=== PATIENT | male | born 1940 | race Hispanic/Latino ===

== ENCOUNTER 2017-07-25 08:20 | Inpatient (IN) | payer MEDICARE, MEDICAID ==
[2017-07-25 08:20] VITALS: BMI 28.8
[2017-07-25 09:18] LABS: BASO % 0.2 % (0.0-2.0); EOS % 0.2 % (0.0-4.0); LYMPH # 0.4 K/uL (1.0-4.3); LYMPH % 4.1 % (20.0-40.0); MEAN CELL VOLUME 85.6 fL (80.0-94.0); MEAN CORPUSCULAR HEMOGLOBIN 30.4 pg (27.0-31.0); MEAN CORPUSCULAR HGB CONC 35.5 g/dL (33.0-37.0); MEAN PLATELET VOLUME 7.9 fL (7.2-11.7); MONO # 0.5 K/uL (0.0-0.8); NEUT # 9.4 K/uL (1.8-7.0); NEUT % 90.5 % (50.0-75.0); PLATELET COUNT 191 K/uL (130-400); RBC 4.61 Mil/uL (4.40-5.90); RED CELL DISTRIBUTION WIDTH 13.9 % (11.5-14.5); WHITE BLOOD COUNT 10.4 K/uL (4.8-10.8)
[2017-07-25 09:25] LABS: INR 1.2; PROTHROMBIN TIME 12.9 SECONDS (9.7-12.2)
[2017-07-25 09:31] LABS: ALB/GLOB RATIO 1.3 (1.0-2.1); ALBUMIN 4.2 g/dL (3.5-5.0); ALT/SGPT 33 U/L (21-72); AST/SGOT 29 U/L (17-59); BLOOD UREA NITROGEN 17 mg/dL (9-20); CALCIUM 9.6 mg/dl (8.6-10.4); GFR AFRICAN-AMERICAN > 60; GFR NON-AFRICAN AMERICAN > 60; HDL CHOLESTEROL 28 mg/dL (30-70)
[2017-07-25 09:41] LABS: ANISOCYTOSIS SLIGHT; BANDS 1 % (0-2); LYMPHOCYTE 5 % (20-40); MONOCYTE 5 % (0-10); NEUTROPHIL 89 % (50-75); PLATELET ESTIMATE NORMAL (NORMAL); TOTAL CELLS COUNTED 100
[2017-07-25 09:44] LABS: LDL CHOLESTEROL 77 mg/dL (0-129)
--- NOTE | 2017-07-25 09:44 | RAD ---
HISTORY: Code Stroke COMPARISON: Chest radiograph dated 10/30/2015 FINDINGS: LUNGS: No active pulmonary disease. PLEURA: No significant pleural effusion identified, no pneumothorax apparent. CARDIOVASCULAR: Cardiomediastinal silhouette unchanged. OSSEOUS STRUCTURES: Unchanged. VISUALIZED UPPER ABDOMEN: Normal. OTHER FINDINGS: None. IMPRESSION: No consolidation pleural effusion.
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
[2017-07-25] MEDS ORDERED: Aspirin 325 mg EC Tablets PO ONE (10:11)
--- NOTE | 2017-07-25 10:24 | CT ---
PROCEDURE: CT HEAD WITHOUT CONTRAST. HISTORY: confused, resolved, neuro intact COMPARISON: CT head dated 12/12/2014. TECHNIQUE: Axial computed tomography images were obtained through the head/brain without intravenous contrast. Radiation dose: Total exam DLP = 767.8 mGy-cm. This CT exam was performed using one or more of the following dose reduction techniques: Automated exposure control, adjustment of the mA and/or kV according to patient size, and/or use of iterative reconstruction technique. FINDINGS: HEMORRHAGE: No intracranial hemorrhage. BRAIN: No mass effect or edema. Atrophy. Chronic microvascular ischemic changes. VENTRICLES: Unremarkable. No hydrocephalus. CALVARIUM: Unremarkable. PARANASAL SINUSES: Unremarkable as visualized. No significant inflammatory changes. MASTOID AIR CELLS: Prior right mastoidectomy. No inflammatory changes. OTHER FINDINGS: Stable lateral left orbital 0.9 x 0.9 cm hyperdense structure. IMPRESSION: No acute intracranial pathology. 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
[2017-07-25 11:05] LABS: SQUAMOUS EPITHIAL 2 /hpf (0-5); URINE BACTERIA RARE (<OCC); URINE BILIRUBIN NEGATIVE (NEGATIVE); URINE BLOOD 1+ (NEGATIVE); URINE CLARITY Hazy (Clear); URINE COLOR Yellow (YELLOW); URINE GLUCOSE (UA) NORMAL (Normal); URINE LEUKOCYTE ESTERASE 1+ Leu/uL (Negative); URINE PROTEIN 1+ mg/dL (NEGATIVE)
[2017-07-25 14:24] VITALS: RESP 20
[2017-07-26] MEDS ORDERED: Albuterol HFA 90 mcg/actuation (8 g) INH STA (05:45)
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
[2017-07-26] MEDS: Enoxaparin 40 mg Syringe SC SCH ×2 (10:01→13:02)
[2017-07-26] MEDS: Pantoprazole 40 mg EC Tab PO SCH (10:01)
--- NOTE | 2017-07-26 12:03 | VASCLAB ---
PROCEDURE: HISTORY: TIA COMPARISON: None available. TECHNIQUE: Grayscale and duplex Doppler evaluation of the cervical carotid and vertebral arteries were performed. The common carotid, carotid bifurcations and cervical Internal Carotid Artery (ICA) and proximal External Carotid Artery (ECA) were evaluated. The vertebral arteries were evaluated for gross patency and flow direction. Report prepared by MALIK Silverman FINDINGS: RIGHT CAROTID ARTERIES: 1. Common Carotid Artery: No significant focal plaque formation of the right common carotid artery. Maximum Peak Systolic velocity: 121 cm/sec: End-diastolic velocity 22 cm/sec. 2. Carotid Bifurcation: plaque formation. Maximum Peak Systolic velocity: 50 cm/sec: End-diastolic velocity 10 cm/sec. 3. Internal Carotid Artery: Plaque description: 3.1. Proximal Segment: Peak systolic velocity 47 cm/sec: End-diastolic velocity 17 cm/sec - % stenosis 0-15% 3.2. Middle Segment: Peak systolic velocity 43 cm/sec: End-diastolic velocity 14 cm/sec - % stenosis 0-15% 3.3. Distal Segment: Peak systolic velocity 80 cm/sec: End-diastolic velocity 23 cm/sec - % stenosis 0-15% 4. External Carotid Artery: No significant focal plaque formation. Peak systolic velocity 56 cm/sec 5. ICA/CCA Ratio: 1.1 LEFT CAROTID ARTERIES: 1. Common Carotid Artery: No significant focal plaque formation of the left common carotid artery. Maximum Peak Systolic velocity: 97 cm/sec: End-diastolic velocity 26 cm/sec. 2. Carotid Bifurcation: plaque formation. Maximum Peak Systolic velocity: 74 cm/sec: End-diastolic velocity 19 cm/sec. 3. Internal Carotid Artery: Plaque description: 3.1. Proximal Segment: Peak systolic velocity 66 cm/sec: End-diastolic velocity 23 cm/sec - % stenosis 0-15% 3.2. Middle Segment: Peak systolic velocity 90 cm/sec: End-diastolic velocity 33 cm/sec - % stenosis 0-15% 3.3. Distal Segment: Peak systolic velocity 59 cm/sec: End-diastolic velocity 19 cm/sec - % stenosis 0-15% 4. External Carotid Artery: No significant focal plaque formation. Peak systolic velocity 82 cm/sec 5. ICA/CCA Ratio: 1.2 VERTEBRAL ARTERIES: 1. Right Vertebral Artery: The right vertebral artery flow direction is antegrade. 2. Left Vertebral Artery: The left vertebral artery flow direction is antegrade. OTHER FINDINGS: 1. Right Brachial Blood pressure: 150 mmHg. 2. Left Brachial Blood pressure: 150 mmHg. IMPRESSION: RIGHT: Duplex scan does not suggest hemodynamically significant stenosis of the right extracranial carotid arteries. LEFT: Duplex scan does not suggest hemodynamically significant stenosis of the left extracranial carotid arteries.
--- NOTE | 2017-07-26 12:26 | CARD ---
APPROVED REPORT EKG Measurement Heart [id number] <Conclusion> Normal sinus rhythm Nonspecific ST and T wave abnormality Abnormal ECG
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
[2017-07-26] MEDS ORDERED: Oxycodone/Acetaminophen 5/325 mg Tab PO STA (15:48)
--- NOTE | 2017-07-27 01:02 | CP.PCM.PN ---
Subjective - Date & Time of Evaluation Date of Evaluation: 07/26/17 Time of Evaluation: 20:00 - Subjective Subjective: pt is more alert, less cough, less short of breath., no seizure, no /o fall.pt is feeling better, pt agreed for MRI with lorazepam Objective - Vital Signs/Intake and Output Vital Signs (last 24 hours): Temp Pulse Resp BP Pulse Ox 97.4 F L 79 20 145/86 95 07/26/17 15:00 07/26/17 15:00 07/26/17 15:00 07/26/17 15:00 07/26/17 15:00 Intake and Output: 07/26/17 07/27/17 18:59 06:59 Intake Total 380 Balance 380 - Medications Medications: Current Medications Acetaminophen (Tylenol 325mg Tab) 650 mg PO Q6 PRN PRN Reason: Pain, Mild (1-3) Aspirin (Ecotrin) 81 mg PO DAILY [facility] Last Admin: 07/26/17 10:01 Dose: 81 mg Enoxaparin Sodium (Lovenox) 40 mg SC DAILY [facility] Last Admin: 07/26/17 13:02 Dose: 40 mg Home Med (Patient's Own Inhalation Solution) 0 ml INH DAILY [facility] Home Med (Patient's Own Medication) 1 tab PO DAILY [facility] Pantoprazole Sodium (Protonix Ec Tab) 40 mg PO DAILY [facility] Last Admin: 07/26/17 10:01 Dose: 40 mg Rosuvastatin Calcium (Crestor) 10 mg PO HS [facility] Last Admin: 07/26/17 21:48 Dose: 10 mg - Labs Labs: 07/25/17 09:14 07/25/17 09:14 PT 12.9 SECONDS (9.7-12.2) H 07/25/17 09:14 INR 1.2 07/25/17 09:14 APTT 31 SECONDS (21-34) 07/25/17 09:14 - Constitutional Appears: No Acute Distress - Head Exam Head Exam: ATRAUMATIC, NORMAL INSPECTION, NORMOCEPHALIC - Eye Exam Eye Exam: EOMI, Normal appearance, PERRL Pupil Exam: NORMAL ACCOMODATION, PERRL - ENT Exam ENT Exam: Mucous Membranes Moist, Normal Exam - Respiratory Exam Respiratory Exam: Clear to Ausculation Bilateral, NORMAL BREATHING PATTERN - Cardiovascular Exam Cardiovascular Exam: REGULAR RHYTHM, +S1, +S2. absent: Murmur - GI/Abdominal Exam GI & Abdominal Exam: Soft, Normal Bowel Sounds. absent: Tenderness - Neurological Exam Neurological Exam: Alert, Oriented x3 - Psychiatric Exam Psychiatric exam: Normal Affect, Normal Mood - Skin Skin Exam: Dry, Intact, Normal Color, Warm Assessment and Plan (1) Hypertension Status: Acute (2) Change in mental status Assessment & Plan: rule out seizure disorder pt is for MRI Status: Acute (3) Back pain Status: Acute (4) COPD exacerbation Status: Acute (5) Spinal stenosis at L4-L5 level Status: Acute
--- NOTE | 2017-07-27 03:55 | CON ---
DATE: HISTORY OF PRESENT ILLNESS: This is a 77-year-old male who came to the emergency room with stool incontinence and altered mental status and became confused, admitted to the hospital for further workup. CAT scan of the head was done which was reported negative. Carotid Doppler was normal. PAST MEDICAL HISTORY: Gallbladder disease and bladder stones. HABITS: Ex-smoker. Does not drink. ALLERGIES: TO PENICILLIN. LABORATORY DATA: WBC 10.4, hemoglobin 14, hematocrit 39.4, platelet 191. Sodium 142, potassium 4, chloride 103, CO2 of 28, glucose 98, BUN 17, creatinine 0.6. PHYSICAL EXAMINATION: VITAL SIGNS: Blood pressure 161/95. HEENT: Normocephalic, atraumatic. NECK: Supple. NEURO EXAM: Alert, awake and oriented x3. No aphasia. Cranial nerves II through XII are tested. Pupils reactive. EOM intact. Visual field full. No facial asymmetry. Tongue midline. Motor examination: Moves all the extremities equally. Tone normal. Deep tendon reflexes 1+. Both plantars are downgoing. Sensory appears intact. Cerebellar and gait, normal. IMPRESSION: Syncope less likely seizure and possible transient ischemic attack though less likely. PLAN: CAT scan of the head was done which is reported negative. Carotid Doppler was normal. Workup in progress. We will do EEG. We will follow it up. Rafael Renee MD
[2017-07-27] MEDS: Enoxaparin 40 mg Syringe SC SCH (11:05)
[2017-07-27] MEDS: Pantoprazole 40 mg EC Tab PO SCH (11:05)
[2017-07-27] MEDS: ESOMEPRAZOLE MAGNESIUM 40 MG PO SCH (11:05)
[2017-07-27] MEDS: INCRUSE ELLIPTA 62.5 MCG INH SCH (11:06)
--- NOTE | 2017-07-27 12:09 | CARD ---
APPROVED REPORT EXAM: Two-dimensional and M-mode echocardiogram with Doppler and color Doppler. Other Information Quality : TDSRhythm : INDICATION CVA/TIA 2D DIMENSIONS IVSd1.3 (0.7-1.1cm)LVDd4.9 (3.9-5.9cm) PWd1.3 (0.7-1.1cm)LVDs3.1 (2.5-4.0cm) FS (%) 36.1 %LVEF (%)65.6 (>50%) M-Mode DIMENSIONS Left Atrium (MM)2.68 (2.5-4.0cm)Aortic Root4.24 (2.2-3.7cm) Aortic Cusp Exc.2.05 (1.5-2.0cm) Aortic Valve AI P 1/2 [id number] Mitral Valve MV E Tnffinhq20.3cm/sMV A Pnlqxebn37.2cm/sE/A ratio0.5 TDI E/Lateral E'0.0E/Medial E'0.0 Tricuspid Valve TR Peak [id number]/sTR Peak Gr.[id number] LEFT VENTRICLE The left ventricle is normal size. There is mild concentric left ventricular hypertrophy. The left ventricular function is normal. The left ventricular ejection fraction is within the normal range. There is normal LV segmental wall motion. The left ventricular diastolic function is normal. Transmitral Doppler flow pattern is Grade I-abnormal relaxation pattern. No left ventricle thrombus noted on this study. There is no ventricular septal defect visualized. There is no left ventricular aneurysm. RIGHT VENTRICLE The right ventricle is normal size. ATRIA The left atrium size is normal. The right atrium size is normal. AORTIC VALVE The aortic valve is normal in structure. There is mild to moderate aortic regurgitation. There is no aortic valvular stenosis. MITRAL VALVE The mitral valve is normal in structure. Mitral regurgitation is mild. TRICUSPID VALVE The tricuspid valve is normal in structure. There is no tricuspid valve regurgitation noted. PERICARDIAL EFFUSION There is no pericardial effusion. <Conclusion> There is mild concentric left ventricular hypertrophy. There is mild to moderate aortic regurgitation. Mitral regurgitation is mild. The left ventricular diastolic function is normal. Transmitral Doppler flow pattern is Grade I-abnormal relaxation pattern. LVEF IS 65%.
[2017-07-27] MEDS ORDERED: Magnesium Hydroxide Susp 30 ml UD PO ONE (18:35)
--- NOTE | 2017-07-27 23:51 | CP.PCM.PN ---
Subjective - Date & Time of Evaluation Date of Evaluation: 07/27/17 Time of Evaluation: 19:35 - Subjective Subjective: Pt is seen and evaluated at bedside, pt is feeling better, no seizure, no confusion, pt has low back pain, given cyclobenzaprine Objective - Vital Signs/Intake and Output Vital Signs (last 24 hours): Temp Pulse Resp BP Pulse Ox 98.4 F 89 20 159/91 H 95 07/27/17 15:00 07/27/17 16:00 07/27/17 15:00 07/27/17 15:00 07/27/17 15:00 Intake and Output: 07/27/17 07/28/17 18:59 06:59 Intake Total 300 320 Balance 300 320 - Medications Medications: Current Medications Acetaminophen (Tylenol 325mg Tab) 650 mg PO Q6 PRN PRN Reason: Pain, Mild (1-3) Last Admin: 07/27/17 18:54 Dose: 650 mg Aspirin (Ecotrin) 81 mg PO DAILY [facility] Last Admin: 07/27/17 11:05 Dose: 81 mg Enoxaparin Sodium (Lovenox) 40 mg SC DAILY [facility] Last Admin: 07/27/17 11:05 Dose: 40 mg Home Med (Patient's Own Inhalation Solution) 0 ml INH DAILY [facility] Last Admin: 07/27/17 11:06 Dose: 1 ml Home Med (Patient's Own Medication) 1 tab PO DAILY [facility] Last Admin: 07/27/17 11:05 Dose: 1 tab Pantoprazole Sodium (Protonix Ec Tab) 40 mg PO DAILY [facility] Last Admin: 07/27/17 11:05 Dose: 40 mg Rosuvastatin Calcium (Crestor) 10 mg PO HS [facility] Last Admin: 07/27/17 21:17 Dose: 10 mg - Labs Labs: 07/25/17 09:14 07/25/17 09:14 PT 12.9 SECONDS (9.7-12.2) H 07/25/17 09:14 INR 1.2 07/25/17 09:14 APTT 31 SECONDS (21-34) 07/25/17 09:14 - Constitutional Appears: No Acute Distress - Head Exam Head Exam: ATRAUMATIC, NORMAL INSPECTION, NORMOCEPHALIC - Eye Exam Eye Exam: EOMI, Normal appearance, PERRL Pupil Exam: NORMAL ACCOMODATION, PERRL - Respiratory Exam Respiratory Exam: Decreased Breath Sounds, Rales, Rhonchi - Cardiovascular Exam Cardiovascular Exam: REGULAR RHYTHM, +S1, +S2. absent: Murmur - GI/Abdominal Exam GI & Abdominal Exam: Soft, Normal Bowel Sounds. absent: Tenderness - Rectal Exam Rectal Exam: Deferred Assessment and Plan (1) Hypertension Status: Acute (2) Change in mental status Status: Acute (3) Back pain Status: Acute (4) COPD exacerbation Status: Acute (5) Spinal stenosis at L4-L5 level Status: Acute
[2017-07-28 08:23] VITALS: BP 152/88; TEMP 97.6
[2017-07-28] MEDS: ESOMEPRAZOLE MAGNESIUM 40 MG PO SCH (09:47)
[2017-07-28] MEDS: Enoxaparin 40 mg Syringe SC SCH (09:47)
[2017-07-28] MEDS: Pantoprazole 40 mg EC Tab PO SCH (09:50)
[2017-07-28] MEDS: INCRUSE ELLIPTA 62.5 MCG INH SCH (10:30)
--- NOTE | 2017-07-28 11:50 | CP.PCM.PN ---
Subjective - Date & Time of Evaluation Date of Evaluation: 07/28/17 Time of Evaluation: 10:40 - Subjective Subjective: Patient seen today , states feels better, denies any dizziness, palpitations, headache, numbness or weakness , wants to go home oob ambulating with steady gait No overnight events reported by RN Objective - Vital Signs/Intake and Output Vital Signs (last 24 hours): Temp Pulse Resp BP Pulse Ox 97.6 F 75 20 152/88 H 96 07/28/17 07:40 07/28/17 07:40 07/28/17 07:40 07/28/17 07:40 07/28/17 07:40 Intake and Output: 07/28/17 07/28/17 06:59 18:59 Intake Total 330 Balance 330 - Medications Medications: Current Medications Acetaminophen (Tylenol 325mg Tab) 650 mg PO Q6 PRN PRN Reason: Pain, Mild (1-3) Last Admin: 07/27/17 18:54 Dose: 650 mg Aspirin (Ecotrin) 81 mg PO DAILY [facility] Last Admin: 07/28/17 09:50 Dose: 81 mg Enoxaparin Sodium (Lovenox) 40 mg SC DAILY [facility] Last Admin: 07/28/17 09:47 Dose: 40 mg Home Med (Patient's Own Inhalation Solution) 0 ml INH DAILY [facility] Last Admin: 07/28/17 10:30 Dose: 1 ml Home Med (Patient's Own Medication) 1 tab PO DAILY [facility] Last Admin: 07/28/17 09:47 Dose: 1 tab Pantoprazole Sodium (Protonix Ec Tab) 40 mg PO DAILY [facility] Last Admin: 07/28/17 09:50 Dose: 40 mg Rosuvastatin Calcium (Crestor) 10 mg PO [facility] Last Admin: 07/27/17 21:17 Dose: 10 mg - Labs Labs: 07/25/17 09:14 07/25/17 09:14 PT 12.9 SECONDS (9.7-12.2) H 07/25/17 09:14 INR 1.2 07/25/17 09:14 APTT 31 SECONDS (21-34) 07/25/17 09:14 - Constitutional Appears: Well, No Acute Distress - Respiratory Exam Respiratory Exam: Clear to Ausculation Bilateral, NORMAL BREATHING PATTERN - Cardiovascular Exam Cardiovascular Exam: REGULAR RHYTHM, +S1, +S2 - Neurological Exam Neurological Exam: Alert, Awake, Oriented x3 Assessment and Plan - Assessment and Plan (Free Text) Assessment: a/p 77 yr old male with pmhx of COPD, and chronic low back pain admitted with change in mental status - at home and back to baseline upon arrival to the ED CT scan- No acute intracranial pathology. 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 EEG DONE TODAY - PENDING RESULT carotid duplex- negative MRI - ordered for further evaluation and patient refused - D/W Dr. Black , stable for discharge home today and f/u with Dr. Goncalves office on august 06 ( pt already has appointment ) discharge plan discussed with patient who understands and agrees with plan Patient instructed to returns to ED if symptoms returns or any concerning symptoms
[2017-07-28 16:18] VITALS: PULSE 71
--- NOTE | 2017-07-28 17:14 | CP.PCM.DIS ---
Provider - Provider Date of Admission: 07/25/17 10:02 Attending physician: Adria Black MD Time Spent in preparation of Discharge (in minutes): 25 Diagnosis - Discharge Diagnosis (1) Hypertension Status: Acute (2) Change in mental status Status: Acute (3) Back pain Status: Acute (4) COPD exacerbation Status: Acute (5) Spinal stenosis at L4-L5 level Status: Acute Hospital Course - Lab Results Lab Results: Most Recent Lab Values WBC 10.4 K/uL (4.8-10.8) D 07/25/17 09:14 RBC 4.61 Mil/uL (4.40-5.90) 07/25/17 09:14 Hgb 14.0 g/dL (12.0-18.0) 07/25/17 09:14 Hct 39.4 % (35.0-51.0) 07/25/17 09:14 MCV 85.6 fL (80.0-94.0) D 07/25/17 09:14 MCH 30.4 pg (27.0-31.0) 07/25/17 09:14 MCHC 35.5 g/dL (33.0-37.0) 07/25/17 09:14 RDW 13.9 % (11.5-14.5) 07/25/17 09:14 Plt Count 191 K/uL (130-400) 07/25/17 09:14 MPV 7.9 fL (7.2-11.7) 07/25/17 09:14 Neut % (Auto) 90.5 % (50.0-75.0) H 07/25/17 09:14 Lymph % (Auto) 4.1 % (20.0-40.0) L 07/25/17 09:14 Bryan % (Auto) 5.0 % (0.0-10.0) 07/25/17 09:14 Eos % (Auto) 0.2 % (0.0-4.0) 07/25/17 09:14 Baso % (Auto) 0.2 % (0.0-2.0) 07/25/17 09:14 Neut # (Auto) 9.4 K/uL (1.8-7.0) H 07/25/17 09:14 Lymph # (Auto) 0.4 K/uL (1.0-4.3) L 07/25/17 09:14 Bryan # (Auto) 0.5 K/uL (0.0-0.8) 07/25/17 09:14 Eos # (Auto) 0.0 K/uL (0.0-0.7) 07/25/17 09:14 Baso # (Auto) 0.0 K/uL (0.0-0.2) 07/25/17 09:14 Neutrophils % (Manual) 89 % (50-75) H 07/25/17 09:14 Band Neutrophils % 1 % (0-2) 07/25/17 09:14 Lymphocytes % (Manual) 5 % (20-40) L 07/25/17 09:14 Monocytes % (Manual) 5 % (0-10) 07/25/17 09:14 Platelet Estimate Normal (NORMAL) 07/25/17 09:14 Anisocytosis (manual) Slight 07/25/17 09:14 PT 12.9 SECONDS (9.7-12.2) H 07/25/17 09:14 INR 1.2 07/25/17 09:14 APTT 31 SECONDS (21-34) 07/25/17 09:14 Sodium 142 mmol/L (132-148) 07/25/17 09:14 Potassium 4.0 mmol/L (3.6-5.2) 07/25/17 09:14 Chloride 103 mmol/L (98-107) 07/25/17 09:14 Carbon Dioxide 28 mmol/L (22-30) 07/25/17 09:14 Anion Gap 14 (10-20) 07/25/17 09:14 BUN 17 mg/dL (9-20) 07/25/17 09:14 Creatinine 0.6 mg/dL (0.8-1.5) L 07/25/17 09:14 Est GFR ( Amer) > 60 07/25/17 09:14 Est GFR (Non-Af Amer) > 60 07/25/17 09:14 POC Glucose (mg/dL) 80 mg/dL (65-110) 07/27/17 16:22 Random Glucose 98 mg/dL (75-110) 07/25/17 09:14 Hemoglobin A1c 5.2 % (4.2-6.5) 07/25/17 09:14 Calcium 9.6 mg/dl (8.6-10.4) 07/25/17 09:14 Total Bilirubin 0.7 mg/dL (0.2-1.3) 07/25/17 09:14 AST 29 U/L (17-59) 07/25/17 09:14 ALT 33 U/L (21-72) 07/25/17 09:14 Alkaline Phosphatase 77 U/L (38-126) 07/25/17 09:14 Troponin I 0.0140 ng/mL (0.00-0.120) 07/25/17 09:14 Total Protein 7.3 g/dL (6.3-8.3) 07/25/17 09:14 Albumin 4.2 g/dL (3.5-5.0) 07/25/17 09:14 Globulin 3.1 gm/dL (2.2-3.9) 07/25/17 09:14 Albumin/Globulin Ratio 1.3 (1.0-2.1) 07/25/17 09:14 Triglycerides 132 mg/dL (0-149) D 07/25/17 09:14 Cholesterol 127 mg/dL (0-199) 07/25/17 09:14 LDL Cholesterol Direct 77 mg/dL (0-129) 07/25/17 09:14 HDL Cholesterol 28 mg/dL (30-70) L 07/25/17 09:14 Urine Color Yellow (YELLOW) 07/25/17 10:40 Urine Clarity Hazy (Clear) 07/25/17 10:40 Urine pH 5.0 (5.0-8.0) 07/25/17 10:40 Ur Specific [place] 1.016 (1.003-1.030) 07/25/17 10:40 Urine Protein 1+ mg/dL (NEGATIVE) H 07/25/17 10:40 Urine Glucose (UA) Normal mg/dL (Normal) 07/25/17 10:40 Urine Ketones Negative mg/dL (NEGATIVE) 07/25/17 10:40 Urine Blood 1+ (NEGATIVE) H 07/25/17 10:40 Urine Nitrate Negative (NEGATIVE) 07/25/17 10:40 Urine Bilirubin Negative (NEGATIVE) 07/25/17 10:40 Urine Urobilinogen 2.0 mg/dL (0.2-1.0) 07/25/17 10:40 Ur Leukocyte Esterase 1+ Khris/uL (Negative) H 07/25/17 10:40 Urine WBC (Auto) 5 /hpf (0-5) 07/25/17 10:40 Urine RBC (Auto) 2 /hpf (0-3) 07/25/17 10:40 Ur Squamous Epith Cells 2 /hpf (0-5) 07/25/17 10:40 Urine Bacteria Rare (<OCC) 07/25/17 10:40 - Hospital Course Hospital Course: a/p 77 yr old male with pmhx of COPD, and chronic low back pain admitted with change in mental status - at home and back to baseline upon arrival to the ED CT scan- No acute intracranial pathology. 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 EEG DONE TODAY - PENDING RESULT carotid duplex- negative MRI - ordered for further evaluation and patient refused - pt is stable for discharge home today and f/u with Dr. Adler office on august 06 ( pt already has appointment ) discharge plan discussed with patient who understands and agrees with plan Patient instructed to returns to ED if symptoms returns or any concerning symptoms Discharge Exam - Head Exam Head Exam: ATRAUMATIC, NORMAL INSPECTION, NORMOCEPHALIC Discharge Plan - Follow Up Plan Condition: GOOD Disposition: HOME/ ROUTINE Instructions: Heart Healthy Diet, DASH Diet, Altered Mental Status (DC), Exacerbation of COPD (DC), Hypertension (DC) Additional Instructions: Please follow up with Dr. Adler office on august 06 Please resume all home medications If symptoms returns or any concerning symptoms please returns to ED Referrals: Ana Rosa Adler MD [Medical Doctor] -
[2017-07-28 18:26] VITALS: O2SAT 98
== END 2017-07-28 13:26 | disposition home or self-care (01) | DRG 948 ==
LOC: C.ER 08:20 → C.9E 10:02 → C.6T 14:20
PROVIDERS: ADMIT Internal Medicine; ATTEND Internal Medicine
DX: R41.82 Altered mental status, unspecified (principal); R15.9 Full incontinence of feces; J44.1 Chronic obstructive pulmonary disease with (acute) exacerbation; M48.061 Spinal stenosis, lumbar region without neurogenic claudication; I10 Essential (primary) hypertension; Z87.891 Personal history of nicotine dependence; Z88.0 Allergy status to penicillin

== ENCOUNTER 2018-03-03 09:16 | Day surgery (SDC) | payer MEDICARE, MEDICAID ==
[2018-02-16 08:17] VITALS: BMI 26.6
[2018-03-03] MEDS ORDERED: Acetaminophen-Codeine 300/30 mg Tab PO PRN (09:56)
[2018-03-03] MEDS ORDERED: Dextrose 5%/0.45% NS 1,000 ML IV SCH (10:00)
[2018-03-03] MEDS ORDERED: ceFAZolin 1 gm FROZEN Premix 0 GM/0 ML ML IVPB ONE (11:18)
[2018-03-03] MEDS ORDERED: Midazolam 2 MG/2 ML VIAL ONE (11:22)
[2018-03-03] MEDS ORDERED: Clindamycin 600mg/50ml NS 600 MG/50 ML BAG IVPB ONE (11:31)
[2018-03-03] MEDS ORDERED: Propofol 10 mg/ml Inj (20 ML) ONE (11:47)
[2018-03-03] MEDS ORDERED: Racepinephrine 2.25% Inhal Soln 0.5 ML UD NEB ONE (12:14)
[2018-03-03] MEDS ORDERED: Racepinephrine 2.25% Inhal Soln 0.5 ML UD ONE (12:18)
--- NOTE | 2018-03-03 13:23 | OP ---
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 PROCEDURE PERFORMED: Micro direct laryngoscopy with biopsy. 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 DESCRIPTION OF PROCEDURE: The patient was brought into room, placed in supine position. Anesthesia initiated through an ET tube. Shoulder roll was placed and neck extended. The patient was draped in usual manner. Direct laryngoscope was inserted into the oral cavity, passed to the oropharynx and hypopharynx. The base of tongue, vallecula, epiglottis, AE folds, false cords, true cords, arytenoids, piriform sinuses, pharyngeal acosta were brought to view. Tooth guard was placed over the upper teeth in order to protect them before the direct laryngoscope was inserted. However, it was noted that one of the upper teeth, which was very loose, was marked off and it came out. It was removed and put on the tray. The vocal cords were brought to view using a direct laryngoscope and the direct laryngoscope was withdrawn in the usual manner. Microscope was brought into position to view the vocal cords. Mass was noted on the right and left. Multiple biopsies of the right and left vocal cord mass were taken. Bleeding was controlled using saline irrigation. Direct laryngoscope was removed. The microscope was taken out of position. The tooth guard was removed. The patient was taken off anesthesia and taken to recovery room in stable manner. Kameron Loredo MD
[2018-03-03 13:37] VITALS: RESP 18; O2SAT 95
[2018-03-03 14:00] VITALS: BP 138/68; PULSE 79; TEMP 97.8
== END 2018-03-03 14:11 | disposition home or self-care (01) ==
LOC: C.SDS 09:16
PROVIDERS: ATTEND Otolaryngology
DX: J38.1 Polyp of vocal cord and larynx (principal)
CPT/HCPCS: 31535; 88305; J2250; J2704; J3010; J7040